=== PATIENT | male | born 1955 | race Caucasian/White ===

== ENCOUNTER 2020-09-28 13:05 | Inpatient (IN) | payer SELFPAY ==
[2020-09-28] VITALS (24 sets, daily range): BP systolic 112–177; BP diastolic 77–105; PULSE 80–118; RESP 18–27; TEMP 36.8–37.2; O2SAT 89–97; BMI 24.6
--- NOTE | ~2020-09-28 | XR_ITS ---
EXAMINATION: XR barium swallow modified EXAM DATE: 09/30/2020 08:57 INDICATION: Stroke, tongue deviation. Dysphagia. TECHNIQUE: Modified barium esophagram was performed by myself to administered fluoroscopy, in conjun ction with speech pathologist who administered barium in varying consistencies as per speech patholog ist documentation. This was recorded on tape. The DAP for this procedure was 0.66 Gycm2. FINDINGS: Oral stage: Reduced labial seal. Pharyngeal phase: Reduced laryngeal elevation. Laryngeal penetration: Demonstrated, thin liquids. Aspiration: Demonstrated, thin liquids. Laryngeal sensitivity: Inconsistent. IMPRESSION: Aspiration with thin liquids. Please refer to speech pathologist findings and specific f eeding recommendations. Reviewed, dictated and finalized at location B. APIST SPEECH IMPRESSION: Aspiration with thin liquids. Please refer to speech pathologist f indings and specific feeding recommendations.
--- NOTE | ~2020-09-28 | XR_ITS ---
XR chest 2V DATE: 09/28/2020 14:26 INDICATION: Shortness of breath TECHNIQUE: PA and lateral views COMPARISON: None FINDINGS: There is a right-sided aortic arch. Normal heart size. No hilar or mediastinal enlargement. No pulmonary infiltrate or consolidation, pleural effusion or pulmonary vascular congestion or pneumo thorax. Diffuse osteopenia. IMPRESSION: Right-sided aortic arch No active cardiopulmonary disease Reviewed, dictated and finalized at location A. INCLUSION TEACHER
--- NOTE | ~2020-09-28 | CT_ITS ---
EXAMINATION: CT brain wo con DATE: 09/28/2020 15:46 INDICATION: Right arm paresis. For 2 days TECHNIQUE: Computed tomography (CT) of the head was performed without intravenous contrast. The mA wa s adjusted according to patient size. Iterative reconstruction technique was employed. Exam dose: 60 5.33 mGy-cm total exam DLP. COMPARISON: None FINDINGS: Bilateral carotid siphon internal carotid artery calcifications. There is nonspecific diminished attenuation of the cerebral white matter, likely due to chronic small vessel ischemic changes. No intracranial mass lesion or hemorrhage. No midline shift or mass effect. Normal ventricular size. No subdural or epidural hematoma. No fracture or bone destruction of the cranial vault. Mild focal soft tissue thickening of the anteromedial wall of left maxillary sinus. The paranasal si nuses and mastoid air cells are otherwise unremarkable. IMPRESSION: Cerebral atherosclerosis and chronic small vessel ischemic changes of the cerebral white matter Reviewed, dictated and finalized at Location A. Reviewed, dictated and finalized at location A. E WOUND
--- NOTE | ~2020-09-28 | US_ITS ---
EXAMINATION: US carotid duplex BI EXAM DATE: 09/29/2020 08:47 INDICATION: Stroke. TECHNIQUE: Grayscale, color and pulsed Doppler images of the cervical carotid arteries were obtained . The degree of vessel stenosis is placed in one of the following categories: normal, <50% stenosis, 50-69% stenosis, >=70% stenosis but less than near-occlusion, near-occlusion, or occlusion. Note that percent stenosis relative to normal distal artery lumen diameter is indirectly measured from velocit y measurements as described by Fady, et al. Radiology 2003; 229:340-346. There is no prior study fo r comparison. FINDINGS: RIGHT SIDE: Right common carotid artery peak systolic velocity (PSV in cm/s): 106 Right bulb/internal carotid artery peak systolic velocity (PSV in cm/s): 116 Right internal carotid artery end diastolic velocity (EDV in cm/s): 8 Right ICA/CCA peak systolic ratio: 1.1 Right external carotid artery peak systolic velocity (PSV in cm/s): 173 Right vertebral artery antegrade flow: yes There is minimal carotid bulb plaque. Velocity and Doppler waveforms in the common and internal carotid arteries is normal. LEFT SIDE: Left common carotid artery peak systolic velocity (PSV in cm/s): 128 Left bulb/internal carotid artery peak systolic velocity (PSV in cm/s): 88 Left internal carotid artery end diastolic velocity (EDV in cm/s): 17 Left ICA/CCA peak systolic ratio: 0.7 Left external carotid artery peak systolic velocity (PSV in cm/s): 167 Left vertebral artery antegrade flow: yes There is minimal carotid bulb plaque. Velocity and Doppler waveforms in the common and internal carotid arteries is normal. IMPRESSION: 1. Less than 50 percent stenosis in the right internal carotid artery. 2. Less than 50 percent stenosis in the left internal carotid artery. Reviewed, dictated and finalized at location B. RAL FARMWORKER
--- NOTE | 2020-09-28 13:23 | ECG_ITS ---
Measurements Intervals [place] Rate: 103 P: 82 [place]: 141 QRS: -34 QRSD: 75 T: 63 QT: 316 QTc: 415 Interpretive Statements SINUS TACHYCARDIA BASELINE ARTIFACT- I, II, III, AVR, AVL, AVF BORDERLINE ECG Electronically Signed On 09-28-2020 17:14:13 ORTHOPEDIC BRACE MAKER by Valentin Petit D.O.
--- NOTE | 2020-09-28 13:30 | PC.NURSE ---
Upon assessment of pt, pt reports to have some right arm weakness. strength in arms and legs assessed, right upper extremity slightly weaker. Family reports to edp that this is not new.
[2020-09-28] MEDS: IPRATROPIUM 0.5 MG/ALBUTEROL SULFATE 2.5 MG AMPUL.NEB 3 ML INHALATION (13:40)
[2020-09-28] MEDS: methylPREDNISolone SOD SUCC 125 MG VIAL IV PUSH (13:40)
[2020-09-28 14:07] LABS: Base Excess ABG -1.4 mmol/L (0-2); HCO3 ABG 21.7 mmol/L (23-29); Oxygen Content ABG 23.9 %vol (16.0-22.0); Oxygen Saturation ABG 95.2 % (95-97); PCO2 ABG 33.2 mmHg (35-45); Total Hemoglobin 18.1 g/dL; pH ABG 7.43 (7.35-7.45)
[2020-09-28 14:13] LABS: Modified Allen's Test Pass; Site Drawn RIGHT BRACHIAL
[2020-09-28 14:14] LABS: Device ROOM AIR
[2020-09-28 14:15] LABS: Basophils Absolute Auto 0.06 K/mm3 (0.00-0.10); Basophils Percent Auto 0.4 % (0.0-1.0); Eosinophils Absolute Auto 0.03 K/mm3 (0.02-0.50); Eosinophils Percent Auto 0.2 % (1.0-6.0); Hematocrit 50.8 % (40.0-54.0); Hemoglobin 16.8 g/dL (14.0-18.0); Immature Granulocyte Absolute 0.06 K/mm3 (0.00-0.00); Immature Granulocyte Percent A 0.4 % (0.0-0.0); Lymphocytes Absolute Auto 1.47 K/mm3 (1.10-4.50); Lymphocytes Percent Auto 9.9 % (18.0-42.0); Mean Corpuscular HGB Conc 33.1 g/dL (32.0-36.0); Mean Corpuscular Hemoglobin 29.4 pg (27.0-31.0); Mean Platelet Volume 11.3 fl (8.7-11.0); Monocytes Absolute Auto 0.85 K/mm3 (0.10-0.90); Monocytes Percent Auto 5.7 % (2.0-11.0); Neutrophils Absolute Auto 12.3 K/mm3 (1.7-7.2); Neutrophils Percent Auto 83.4 % (50.0-70.0); Platelet Count Result 223 K/mm3 (150-420); Red Blood Count 5.71 M/mm3 (4.70-6.10); Red Cell Distribution Width 13.1 % (11.6-14.4); White Blood Count 14.8 K/mm3 (4.8-10.8)
[2020-09-28 14:17] LABS: D Dimer 0.39 mg/L (0.19-0.50); Influenza Control Valid (Valid); SARS-CoV-2 Ag Negative (Negative)
[2020-09-28 14:25] LABS: Alanine Aminotransferase 21 U/L (16-63); Albumin Level 3.9 g/dL (3.4-5.0); Alkaline Phosphatase 104 U/L (46-116); Anion Gap 11 mmol/L (8-16); Aspartate Amino Transferase 15 U/L (15-37); Bilirubin,Total 0.6 mg/dL (0.00-1.00); Calcium 9.4 mg/dL (8.5-10.1); Carbon Dioxide 28 mmol/L (21-32); Chloride 101 mmol/L (98-108); Estimated CRCL calculation 62 ml/min; Estimated Glomerular Filt Rate > 60; Glucose 82 mg/dL (70-99); Lactic Acid Reflex 1.7 mmol/L (0.4-2.0); Osmolality Calculated 292 mOsm/kg (285-295); Sodium 140 mmol/L (136-145); Total Protein 7.5 g/dL (6.4-8.2); Troponin I 11.1 ng/L (0.00-60.4)
[2020-09-28 14:26] LABS: BNP 7.6 pg/mL (0-100)
[2020-09-28 14:45] LABS: Blood Urea Nitrogen 23 mg/dL (7-18)
--- NOTE | 2020-09-28 15:00 | PC.NURSE ---
In to speak with pt about plan of care. pt states he is concerned about the weakness in his right arm, pt re-assessed. Pt asked again what day the weakness began, pt states that the weakness began on tuesday and that he is having trouble with his speech. pt re-assessed and discussed with edp, pt has right sided facial droop. pt alert and oriented x 3. edp discussed with pt and family to keep pt overnight in the hospital. Pt respiratory state much improved and resting comfortably on stretcher.
--- NOTE | 2020-09-28 15:17 | ED.SOB ---
HPI - SOB/Dyspnea General Chief Complaint: Shortness of Breath/Dyspnea Stated Complaint: Sob Source: patient Mode of arrival: ambulatory Limitations: no limitations History of Present Illness HPI Narrative: this is a 65-year-old gentleman with a no prior history except that of smoking history presents today with some shortness of breath with a persistent nonproductive cough with audible wheezing that started a couple of days ago and has intensified over the last 24 hours with no fever chills no nausea vomiting no chest pain. The patient also states that he has been having some weakness in his right arm for the last 3 days currently weakness has some. Right arm weakness There is no headache no blurry vision no nausea vomiting. does have a right-sided facial droop that started around evening after he went to bed and woke up Tuesday morning with some right arm and facial weakness. MD elicited complaint: shortness of breath Onset (ago): day(s) Timing: intermittent Severity: moderate Exacerbating factors: nothing Related Data Home Medications Medication Instructions Recorded Confirmed No Home Medications 09/28/20 09/28/20 Allergies Allergy/AdvReac Type Severity Reaction Status Date / Time No Known Allergies Allergy Verified 09/28/20 13:18 Review of Systems Review of Systems: All systems reviewed & are unremarkable except as noted in HPI and below PMFSH Past Medical History Medical History Tobacco abuse Exam Const: General: no acute distress Orientation/consciousness: patient oriented x3 HENMT: Head: normal to inspection Eyes: Conjunctivae: conjunctivae normal Pupils: Equal, round and reactive pupils present EOM: EOMs intact bilaterally Neck: Neck: normal visual inspection, no lymphadenopathy and no meningeal signs Chest: Chest palpation & inspection: normal inspection of the chest Resp: Effort & Inspection: normal respiratory effort Auscultation: wheezes and diminished lung sounds GI: GI Palp: Yes Soft to palpation Percussion: Yes normal to percussion Back/Spine/Pelvis: Back: no CVA tenderness Skin: General skin exam: normal color Rashes: no rashes Neuro: General: patient oriented x3, moves all extremities, no meningeal signs, no focal motor deficits and CN's II-XI intact bilaterally Cranial nerves: Yes Nystagmus not present Speech: normal speech Comatose Patient: other ( right arm weakness) Extrem: General: normal to inspection and no pedal edema Psych: Mental Status: mental status grossly normal Affect: normal affect Course Course Emergency Course: reassessment of patient currently wheezing has improved and is did shortness of breath, patient with some right arm weakness has also improved and will give him a dose of ceftriaxone IV, With a facial weakness in right arm weakness well give a full dose aspirin and admit to the floor discussed the findings in the situation with his brother and with the patient, and CT scan showed no acute intracranial process of did show some chronic small-vessel disease. Vital Signs Vital signs: Vital Signs Temperature 36.9 C 09/28/20 13:19 Pulse Rate 107 H 09/28/20 13:19 Respiratory Rate 22 H 09/28/20 13:19 Blood Pressure 177/105 H 09/28/20 13:19 Pulse Oximetry 92 09/28/20 13:19 Temperature 36.9 C 09/28/20 13:19 Pulse Rate 94 09/28/20 14:46 Respiratory Rate 21 H 09/28/20 14:46 Blood Pressure 165/85 H 09/28/20 14:46 Pulse Oximetry 96 09/28/20 14:46 MDM - SOB/Dyspnea Lab Data Result diagrams: 09/28/20 13:59 09/28/20 13:59 Labs: Lab Results 09/28/20 09/28/20 09/28/20 Range/Units 13:59 13:59 13:59 WBC 14.8 H (4.8-10.8) K/mm3 RBC 5.71 (4.70-6.10) M/mm3 Hgb 16.8 (14.0-18.0) g/dL Hct 50.8 (40.0-54.0) % MCV 89.0 (78.0-102.0) fL MCH 29.4 (27.0-31.0) pg MCHC 33.1 (32.0-36.0) g/dL RDW 13
[2020-09-28] MEDS: ASPIRIN 81 MG CHEWABLE TABLET 324 MG PO (16:01)
--- NOTE | 2020-09-28 16:45 | ADMGEN ---
This patient, Walt Hightower, was admitted to 2nd Floor Room 204-1. Patient/family oriented to hospital policies and general routines including ID bracelet, bed and alarms, visiting hours, pain management, procedures, bathroom and other care routines, personal items, smoking policy, room service/diet, and visiting hours. Information on how to activate the Rapid Response Team has been discussed. Patient/Family are encouraged to report perceived risks to care and to ask questions if they do not understand what they are told or what they should do.
[2020-09-28] MEDS: SODIUM CHLORIDE 0.9% IV 1,000 ML 150 ML IV CONT (17:29)
[2020-09-28] MEDS: levETIRAcetam 500 MG TABLET PO (21:08)
[2020-09-29] VITALS (8 sets, daily range): BP systolic 123–146; BP diastolic 72–86; PULSE 64–95; RESP 18–20; TEMP 36.4–37.4; O2SAT 90–98
--- NOTE | 2020-09-29 00:10 | PC.NURSE ---
Called Dr. Morales to clarify IV fluid orders; Orders clarified.
[2020-09-29 05:44] LABS: Basophils Absolute Auto 0.01 K/mm3 (0.00-0.10); Basophils Percent Auto 0.1 % (0.0-1.0); Eosinophils Absolute Auto 0.01 K/mm3 (0.02-0.50); Eosinophils Percent Auto 0.1 % (1.0-6.0); Hematocrit 45.2 % (40.0-54.0); Hemoglobin 14.9 g/dL (14.0-18.0); Immature Granulocyte Absolute 0.11 K/mm3 (0.00-0.00); Immature Granulocyte Percent A 0.7 % (0.0-0.0); Lymphocytes Absolute Auto 0.78 K/mm3 (1.10-4.50); Lymphocytes Percent Auto 5.1 % (18.0-42.0); Mean Corpuscular Hemoglobin 29.4 pg (27.0-31.0); Mean Corpuscular Volume 89.3 fL (78.0-102.0); Mean Platelet Volume 11.2 fl (8.7-11.0); Monocytes Absolute Auto 0.73 K/mm3 (0.10-0.90); Monocytes Percent Auto 4.7 % (2.0-11.0); Neutrophils Absolute Auto 13.8 K/mm3 (1.7-7.2); Neutrophils Percent Auto 89.3 % (50.0-70.0); Platelet Count Result 201 K/mm3 (150-420); Red Blood Count 5.06 M/mm3 (4.70-6.10); White Blood Count 15.4 K/mm3 (4.8-10.8)
[2020-09-29 05:56] LABS: Alanine Aminotransferase 20 U/L (16-63); Albumin Level 3.3 g/dL (3.4-5.0); Alkaline Phosphatase 84 U/L (46-116); Anion Gap 10 mmol/L (8-16); Aspartate Amino Transferase 13 U/L (15-37); Bilirubin,Total 0.4 mg/dL (0.00-1.00); Blood Urea Nitrogen 23 mg/dL (7-18); Calcium 8.7 mg/dL (8.5-10.1); Carbon Dioxide 28 mmol/L (21-32); Chloride 103 mmol/L (98-108); Estimated CRCL calculation 73 ml/min; Estimated Glomerular Filt Rate > 60; Glucose 113 mg/dL (70-99); Osmolality Calculated 296 mOsm/kg (285-295); Potassium 4.4 mmol/L (3.5-5.1); Sodium 141 mmol/L (136-145); Total Protein 6.1 g/dL (6.4-8.2)
[2020-09-29] MEDS: NICOTINE (*PBKC) 21 MG PATCH 1 PATCH TRANSDERM (09:49)
[2020-09-29] MEDS: CLOPIDOGREL BISULFATE 75 MG TABLET PO (09:50)
[2020-09-29] MEDS: guaiFENesin 12 HR 600 MG TABCR PO ×2 (09:50→20:35)
[2020-09-29] MEDS: ACETAMINOPHEN 325 MG TABLET 650 MG PO (09:50)
[2020-09-29] MEDS: SIMVASTATIN 10 MG TABLET 20 MG PO (09:50)
[2020-09-29] MEDS: BENZONATATE 100 MG CAPSULE 200 MG PO ×3 (09:50→16:17)
[2020-09-29] MEDS: predniSONE 20 MG TABLET 40 MG PO (09:51)
[2020-09-29] MEDS: levETIRAcetam 500 MG TABLET 250 MG PO ×2 (10:01→20:35)
--- NOTE | 2020-09-29 11:14 | PM.IMHP ---
H&P: HPI History of Present Illness Date/Time: 09/29/20 11:14 Chief Complaint: sob Narrative: aWlt Hightower is a 65 year old male that presented to our ED today with complaints of shortness of breath and nonproductive cough with wheezing that started a couple of days ago and worsened. Patient has a past medical history of tobacco dependency in COPD. During his visit it was also noticed that he had right-sided facial drooping and right arm weakness according to patient he developed the symptoms on Tuesday. Patient is being ruled out for CVA. Today he continues to have left side facial drooping, handgrip equal bilateral lower extremity strength equal bilateral. Patient does have a little speech deficiency. His carotid Doppler indicates less than 50% stenosis bilateral. Chest x-ray indicates right side aortic arch which patient is not aware of otherwise unremarkable. CT of the head indicates Cerebral atherosclerosis and chronic small vessel ischemic changes of the cerebral white matter. Patient WBC slightly elevated at 15.4 blood gas CO2 33.2 PO2 71 bicarb 21.7. No other significant lab noted. Patient continues to complain of wheeziness this assessment, uncontrolled unproductive cough, his shortness of breath has improved. The patient denies CP, palpitation, extremity numbness, lightheadedness, dizziness, constipation, diarrhea, chills, or fever. Spoke to patient's primary care physician Dr. Amador, updated him on patient's situation. He has agreed to order an MRI for the patient as outpatient and follow-up. We will monitor the patient from 48 hours and possible discharge tomorrow with PT OT and speech therapy as outpatient. This document was completed by using [employer] Fluency Direct speech recognition software, therefore banquet waiter/waitress variances may occur. Despite proofreading, typographical errors may also occur. Review of Systems Review of Systems: All systems reviewed & are unremarkable except as noted in HPI and below (10 point system reviewed) [facility] Past Medical History Medical History Tobacco abuse Social History Social History Smoking packs per day: 1 Smoking cigarettes per day: 20.0 Years smoked: 45 Smoking pack-years: 45.00 Smoking status: Current every day smoker Tobacco type: cigarettes Alcohol intake: never Substance use: never Gender identity (if verbalized by the patient): Male Sexual Orientation (if Verbalized by the Patient): Straight or Heterosexual Spiritual care concerns: No Meds Home Medications and Allergies Home Medications Medication Instructions Recorded Confirmed Type No Home Medications 09/28/20 09/28/20 History Allergies Allergy/AdvReac Type Severity Reaction Status Date / Time No Known Allergies Allergy Verified 09/28/20 13:18 Vital Signs Vital Signs - 24 hr 09/28/20 13:19 09/28/20 13:22 09/28/20 13:30 Temperature 98.4 F Pulse Rate 107 H 109 H 104 H Respiratory Rate 22 H 25 H 22 H Blood Pressure 177/105 H Pulse Oximetry 92 93 09/28/20 13:31 09/28/20 13:45 09/28/20 13:48 Temperature Pulse Rate 109 H 81 97 Respiratory Rate 22 H 23 H 18 Blood Pressure 176/95 H 165/93 H Pulse Oximetry 93 97 93 09/28/20 14:00 09/28/20 14:01 09/28/20 14:15 Temperature Pulse Rate 104 H 107 H 98 Respiratory Rate 24 H 22 H 23 H Blood Pressure 148/102 H Pulse Oximetry 90 91 89 L 09/28/20 14:16 09/28/20 14:30 09/28/20 14:31 Temperature Pulse Rate 118 H 96 95 Respiratory Rate 27 H 22 H 21 H Blood Pressure 132/90 166/93 H Pulse Oximetry 91 92 95 09/28/20 14:45 09/28/20 14:46 09/28/20 14:47 Temperature Pulse Rate 90 94 87 Respiratory Rate 22 H 21 H 21 H Blood Pressure 165/85 H Pulse Oximetry 95 96 97 09/28/20 15:01 09/28/20 15:15 09/28/20 15:16 Temperature Pulse Rate 94 105 H 98 Respiratory Rate 20 22 H
[2020-09-29] MEDS: ASPIRIN 81 MG CHEWABLE TABLET 324 MG PO (16:17)
[2020-09-30] VITALS: BP 131/74; PULSE 68; RESP 16; TEMP 36.8; O2SAT 93
[2020-09-30 03:40] VITALS: BP 138/84; PULSE 58; RESP 18; TEMP 36.6; O2SAT 93
[2020-09-30 05:53] LABS: Hematocrit 44.4 % (40.0-54.0); Hemoglobin 14.8 g/dL (14.0-18.0); Mean Corpuscular HGB Conc 33.3 g/dL (32.0-36.0); Mean Corpuscular Hemoglobin 29.8 pg (27.0-31.0); Mean Corpuscular Volume 89.3 fL (78.0-102.0); Mean Platelet Volume 11.3 fl (8.7-11.0); Platelet Count Result 202 K/mm3 (150-420); Red Blood Count 4.97 M/mm3 (4.70-6.10); Red Cell Distribution Width 13.3 % (11.6-14.4); White Blood Count 16.9 K/mm3 (4.8-10.8)
[2020-09-30 06:09] LABS: Anion Gap 7 mmol/L (8-16); Blood Urea Nitrogen 21 mg/dL (7-18); Calcium 8.8 mg/dL (8.5-10.1); Carbon Dioxide 30 mmol/L (21-32); Chloride 104 mmol/L (98-108); Estimated CRCL calculation 75 ml/min; Estimated Glomerular Filt Rate > 60; Glucose 80 mg/dL (70-99); Osmolality Calculated 294 mOsm/kg (285-295); Potassium 3.7 mmol/L (3.5-5.1); Sodium 141 mmol/L (136-145)
--- NOTE | 2020-09-30 07:38 | ECHO_ITS ---
Patient Info Name: Walt Hightower Age: 65 years : 1955 Gender: Male Ht: 68 in Wt: 162 lbs BSA: 1.89 m2 HR: 58 bpm BP: 138 / 84 mmHg Technical Quality: Fair Exam Date: 09/30/2020 8:47 AM Exam Location: [facility] Patient Status: Inpatient Admit Date: 09/28/2020 Staff Ordering Physician: Joe Field Cultured Marble Products Maker: Kimmy Almanza RDCS Attending Provider: Abhinav Morales MD Exam Type: CA echo doppler color flow Study Info Indications R00.2 - Palpitations R06.00 - Dyspnea, unspecified Complete two-dimentional, color flow and Doppler transthoracic echocardiogram is performed with agitated saline and with contrast to opacify the left ventricle and to improve the delineation of the left ventricle endocardial borders. History/Risk Factors Obesity: No Tobacco Use: Current - Every Day If Any Current, Tobacco Type: Cigarettes If Current - Every Day \T\ Cigarettes, Amount: Heavy Tobacco Use (>=10/day) Dialysis: Current Summary 1. Left ventricular chamber dimension is normal. 2. Left ventricular systolic function is normal, estimated at 60-65%. 3. There is mildly increased left ventricular wall thickness. 4. The left ventricular diastolic function is grade II diastolic dysfunction. Recommendations * Smoking cessation counseling is recommended for this patient. Left Ventricle Tissue doppler E/e' is not performed. Left ventricular chamber dimension is normal. Left ventricular systolic function is normal, estimated at 60-65%. There is mildly increased left ventricular wall thickness. The left ventricular diastolic function is grade II diastolic dysfunction. Right Ventricle Right ventricular chamber dimension is normal. Right ventricular systolic function is normal. Left Atria Left atrial chamber dimension is normal. Right Atria Right atrial chamber dimension is normal. Aortic Valve The aortic valve is trileaflet. There is no aortic valve stenosis. There is no aortic valve regurgitation. Pulmonic Valve There is no pulmonic regurgitation. Mitral Valve There is no mitral valve stenosis. There is no mitral valve regurgitation. Tricuspid Valve There is no tricuspid valve regurgitation. Pericardium/Pleural There is no pericardial effusion. Inferior Vena Cava Normal inferior vena cava with >50% collapse upon inspiration consistent with normal right atrial pressure, 5 mmHg. Aorta The aortic root size at the sinus of Valsalva is normal. Left Ventricular Outflow Tract Name Value Normal LVOT 2D LVOT Diameter 1.9 cm LVOT Doppler LVOT Peak Velocity 84 cm/s LVOT Peak Gradient 3 mmHg LVOT Mean Gradient 1 mmHg LVOT VTI 15 cm LVOT VTI/AV VTI Ratio 0.7 LVOT Stroke Volume 42 ml Mitral Valve Name Value Normal
[2020-09-30 08:00] VITALS: BP 130/80; PULSE 70; PULSE 76; RESP 20; TEMP 37.3; O2SAT 94
--- NOTE | 2020-09-30 08:52 | PC.NURSE ---
npo this am and down and back from xray for barium swallow. refuses breakfast. now echo. r client development manager weaker than l.
[2020-09-30] MEDS: BENZONATATE 100 MG CAPSULE 200 MG PO (09:29)
[2020-09-30] MEDS: predniSONE 20 MG TABLET 40 MG PO (09:29)
[2020-09-30] MEDS: SIMVASTATIN 10 MG TABLET 20 MG PO (09:29)
[2020-09-30] MEDS: guaiFENesin 12 HR 600 MG TABCR PO (09:29)
[2020-09-30] MEDS: NICOTINE (*PBKC) 21 MG PATCH 1 PATCH TRANSDERM (09:30)
[2020-09-30] MEDS: CLOPIDOGREL BISULFATE 75 MG TABLET PO (09:30)
[2020-09-30 12:00] VITALS: BP 136/75; PULSE 70; PULSE 74; RESP 18; TEMP 36.6; O2SAT 94
--- NOTE | 2020-09-30 12:10 | PM.DS ---
DS: Admitting Diagnosis Admitting Diagnosis Admitting Diagnosis: exacerbation COPD CVA DS: Discharge Diagnosis Discharge Diagnosis (1) Acute exacerbation of chronic obstructive airways disease: Code(s): J44.1 - Chronic obstructive pulmonary disease with (acute) exacerbation Status: Acute Assessment and Plan: 09/30/2020 patient was started on Rocephin prednisone breathing treatments oxygen as needed and a note that patient will need to be discharged with albuterol and Symbicort, patient states his breathing is improving today (2) Stroke: Qualifiers: CVA mechanism: unspecified Qualified Code(s): I63.9 - Cerebral infarction, unspecified Code(s): I63.9 - Cerebral infarction, unspecified Status: Acute Assessment and Plan: 09/30/[address] head: CT -Cerebral atherosclerosis and chronic small vessel ischemic changes of the cerebral white matter, patient has follow-up with primary care provider and have MRI scheduled through PCP patient is to continue his beta-mekhi aspirin and Plavix, swallow study was done and patient is to have mechanical soft with nectar thick fluids, my understanding is patient does not have insurance and after talking with case management home health will not picker feeder the patient without insurance (3) Bronchitis: Code(s): J40 - Bronchitis, not specified as acute or chronic Status: Acute Assessment and Plan: 09/30/2020 as noted under acute exacerbation of COPD (4) Tobacco abuse: Code(s): Z72.0 - Tobacco use Status: Acute Assessment and Plan: Provided nicotine patch Patient educated on smoking cessation DS: Summary Hospital Course Hospital Course: patient states that his symptoms from possible stroke have improved only has right arm numbness a little states his breathing is improved today he is able to walk to and from the bathroom without becoming short of breath Time Spent with Patient Time attestation: Total time spent providing and/or coordinating discharge services: < 30 minutes Exam Const: General: cooperative, comfortable, no acute distress, alert, awake and Physically active Nutritional Appearance: average body habitus Resp: Effort & Inspection: normal respiratory effort Auscultation: wheezes expiratory wheezes and inspiratory wheezes Cardio: Rate: regular rate Heart sounds: S1 normal heart sound present and S2 normal heart sound present GI: GI Palp: Yes Soft to palpation and No Tenderness to palpation present (GI) Auscultation: normal bowel sounds Neuro: General: oriented to person, oriented to place and oriented to time Cranial nerves: Yes Normal facial strength present and Yes facial symmetry (right-sided facial droop) Cognition (Neuro): normal cognition Speech: Abnormal speech present slurred Sensory Exam: other (slight numbness to the right arm normal sensation in the legs) Extrem: General: no pedal edema DS: Data Data Completed and Pending Labs on day of discharge: Labs from last 24 hours 09/30/20 09/30/20 05:14 05:14 WBC 16.9 H RBC 4.97 Hgb 14.8 Hct 44.4 MCV 89.3 MCH 29.8 MCHC 33.3 RDW 13.3 Plt Count 202 MPV 11.3 H Sodium 141 Potassium 3.7 Chloride 104 Carbon Dioxide 30 Anion Gap 7 L BUN 21 H Creatinine 0.84 Estim Creat Clear Calc 75 Estimated GFR > 60 Glucose 80 Calculated Osmolality 294 Calcium 8.8 Discharge Plan Discharge Attending physician on discharge: Cuong Cavazos Discharging Clinician: Joe Field Anticipated Discharge Date/Time: 09/30/20 13:30 Patient Disposition: Home, Self-Care Activity: as tolerated Diet: heart healthy Discharge Instructions: follow-up with primary care provider within a week also medications will be ordered for you to picker feeder at her pharmacy Patient Instructions: Ischemic Stroke (DC), Antibiotic Form Stand Alone Forms: General Discharge Information
--- NOTE | 2020-10-03 10:05 | PC.NURSE ---
Pt states he received and understood his discharge instructions. Has no other questions or comments.
== END 2020-09-30 14:00 | disposition home or self-care (01) | DRG 140 ==
LOC: CHSED 16:04 → CHS2ND 16:21
PROVIDERS: Nurse Practitioner; Admitting Provider Emergency Medicine; Emergency Provider Emergency Medicine; PCP Family Medicine; Visit Provider Emergency Medicine
DX: J44.1 Chronic obstructive pulmonary disease with (acute) exacerbation (principal); F17.200 Nicotine dependence, unspecified, uncomplicated; Z20.822 Contact with and (suspected) exposure to COVID-19; J44.0 Chronic obstructive pulmonary disease with (acute) lower respiratory infection; J20.9 Acute bronchitis, unspecified; I63.9 Cerebral infarction, unspecified; R29.810 Facial weakness; R20.0 Anesthesia of skin; I67.2 Cerebral atherosclerosis; F17.210 Nicotine dependence, cigarettes, uncomplicated
CPT/HCPCS: 36415; 36600; 70450; 71046; 80048; 80053; 82805; 83605; 83735; 83880; 84484; 85025; 85027; 85380; 87040; 87426; 87804; 92610; 92611; 93005; 93306; 93880; 94640; 96365; 96375; 97161; 97165; 97530; 97535; 99285; A9270; C9803; J0696; J2930; J7030; J7512

== ENCOUNTER 2020-10-03 22:31 | Emergency (ER) | payer SELFPAY ==
--- NOTE | ~2020-10-03 | XR_ITS ---
EXAMINATION: XR chest 2V DATE: 10/04/2020 00:12 INDICATION: Chronic obstructive pulmonary disease. TECHNIQUE: Frontal and lateral views of the chest were obtained. COMPARISON: Chest 2 views 09/28/2020 FINDINGS: There is mild scarring at right lung apex. No pleural effusion or pneumothorax. The heart s ize is normal. 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 There is mild chronic anterior wedging of multiple vertebral bodies. There are old healed left rib fractures. IMPRESSION: 1. Mild scarring at right lung apex. Reviewed, dictated and finalized at location A. [employer]
[2020-10-03 22:35] VITALS: PULSE 66
[2020-10-03 22:42] VITALS: BP 171/88; PULSE 66; RESP 20; TEMP 36.6; O2SAT 97; O2SAT 98
--- NOTE | 2020-10-03 22:42 | ECG_ITS ---
Measurements Intervals [place] Rate: 65 P: 63 [place]: 152 QRS: 26 QRSD: 81 T: 55 QT: 398 QTc: 416 Interpretive Statements SINUS RHYTHM BASELINE ARTIFACT- I, II, III NORMAL ECG Electronically Signed On 10-04-2020 8:11:14 SAND CLEANING MACHINE OPERATOR by Valentin Petit D.O.
[2020-10-03] MEDS: ALBUTEROL SULFATE NEB 2.5 MG/3 ML INH 5 MG INHALATION (23:13)
[2020-10-03 23:15] VITALS: PULSE 63; RESP 14; O2SAT 94
--- NOTE | 2020-10-03 23:16 | ED.SOB ---
HPI - SOB/Dyspnea General Chief Complaint: Shortness of Breath/Dyspnea Stated Complaint: trouble breathing Time Seen by Provider: 10/03/20 22:55 Source: patient and family Mode of arrival: ambulatory Limitations: other (He appears to have some mild difficulty speaking clearly. ) History of Present Illness HPI Narrative: Patient states he had been doing well today, but he washed his floor with [employer] oil soap and then since 8pm tonight he has been short of breath. He states this came on relatively quickly. MD elicited complaint: shortness of breath Related Data Allergies Allergy/AdvReac Type Severity Reaction Status Date / Time No Known Allergies Allergy Verified 09/28/20 13:18 Review of Systems Constitutional: Constitutional: Reports no additional constitutional complaints Eyes: Eyes: Reports no additional eye complaints ENT: Reports system reviewed and no additional complaints, except as documented Cardiovascular: Cardiovascular: Reports no additional cardiovascular complaints Respiratory: Respiratory: Reports no additional respiratory complaints Gastrointestinal: Gastrointestinal: Reports no additional gastrointestinal complaints Genitourinary: Genitourinary: Reports no additional male genitourinary complaints Musculoskeletal: Musculoskeletal: Reports no additional musculoskeletal complaints Integumentary/Breasts: Skin/Breast: Reports system reviewed and no additional complaints, except as docu Neurologic: Reports system reviewed and no additional complaints, except as documented Psychiatric: Psychiatric: Reports no additional psychiatric complaints Endocrine: Endocrine: Reports no additional endocrine complaints Hematologic/Lymphatic: Hematologic/Lymphatic: Reports no additional hematologic/lymphatic complaints Allergic/Immunologic: Allergic/Immunologic: Reports no additional allergic/immunologic complaints FOR[facility]LY [facility] Past Medical History Medical History Tobacco abuse Social History Social History Smoking packs per day: 1 Smoking cigarettes per day: 20.0 Years smoked: 45 Smoking pack-years: 45.00 Smoking status: Current every day smoker Tobacco type: cigarettes Alcohol intake: never Substance use: never Gender identity (if verbalized by the patient): Male Spiritual care concerns: No Exam Const: General: no acute distress Orientation/consciousness: patient oriented x3 HENMT: Head: normal to inspection Ears: external ears normal Face and sinus: normal facial exam Mouth: Yes Normal oral and palatal mucosa present and Yes moist mucous membranes Eyes: Conjunctivae: conjunctivae normal Neck: Neck: normal visual inspection and no lymphadenopathy Chest: Chest palpation & inspection: normal inspection of the chest Resp: Effort & Inspection: normal respiratory effort Auscultation: wheezes and diminished lung sounds Other: bilateral soft wheezing Cardio: Rate: regular rate Rhythm: regular rhythm GI: GI Palp: Yes Soft to palpation (nontender) Skin: General skin exam: normal color Rashes: no rashes Neuro: General: patient oriented x3, moves all extremities, no meningeal signs and no focal motor deficits Extrem: General: normal to inspection Psych: Mental Status: mental status grossly normal Course Course Emergency Course: Patient was given solumedrol 125mg and albuterol 5mg as nebulizer. After this he was feeling much better. Labs, Ekg, and chest X ray were reviewed. He was sent home with a script for albuterol nebs and dexamethasone 4mg two tablets daily for three days. I asked him to follow up with his doctor soon. Vital Signs Vital signs: Vital Signs Pulse Rate 66 10/03/20 22:35 Temperature 36.8 C 10/03/20 23:54 Pulse Rate 72 10/03/20 23:54 Respiratory Rate 18 10/03/20 23:54 Blood Pressure 107/92 H 10/03/20 23:54 Pulse Oximetry 97 02
[2020-10-03 23:20] VITALS: PULSE 70; RESP 17; O2SAT 100
[2020-10-03 23:20] LABS: Basophils Absolute Auto 0.06 K/mm3 (0.00-0.10); Basophils Percent Auto 0.7 % (0.0-1.0); Eosinophils Absolute Auto 0.15 K/mm3 (0.02-0.50); Eosinophils Percent Auto 1.8 % (1.0-6.0); Hematocrit 42.2 % (40.0-54.0); Hemoglobin 14.2 g/dL (14.0-18.0); Immature Granulocyte Absolute 0.03 K/mm3 (0.00-0.00); Immature Granulocyte Percent A 0.4 % (0.0-0.0); Lymphocytes Percent Auto 22.6 % (18.0-42.0); Mean Corpuscular HGB Conc 33.6 g/dL (32.0-36.0); Mean Corpuscular Volume 89.2 fL (78.0-102.0); Monocytes Percent Auto 8.3 % (2.0-11.0); Neutrophils Absolute Auto 5.6 K/mm3 (1.7-7.2); Neutrophils Percent Auto 66.2 % (50.0-70.0); Platelet Count Result 217 K/mm3 (150-420); Red Blood Count 4.73 M/mm3 (4.70-6.10); Red Cell Distribution Width 13.2 % (11.6-14.4); White Blood Count 8.4 K/mm3 (4.8-10.8)
[2020-10-03] MEDS: methylPREDNISolone SOD SUCC 125 MG VIAL IV PUSH (23:28)
[2020-10-03 23:33] LABS: D Dimer 0.39 mg/L (0.19-0.50)
[2020-10-03 23:37] LABS: Alanine Aminotransferase 22 U/L (16-63); Albumin Level 3.3 g/dL (3.4-5.0); Alkaline Phosphatase 69 U/L (46-116); Anion Gap 8 mmol/L (8-16); Aspartate Amino Transferase 13 U/L (15-37); Bilirubin,Total 0.5 mg/dL (0.00-1.00); Blood Urea Nitrogen 22 mg/dL (7-18); Calcium 8.6 mg/dL (8.5-10.1); Carbon Dioxide 28 mmol/L (21-32); Chloride 107 mmol/L (98-108); Estimated CRCL calculation 59 ml/min; Estimated Glomerular Filt Rate > 60; Glucose 95 mg/dL (70-99); Osmolality Calculated 299 mOsm/kg (285-295); Potassium 3.7 mmol/L (3.5-5.1); Sodium 143 mmol/L (136-145); Total Protein 6.2 g/dL (6.4-8.2)
[2020-10-03 23:38] LABS: BNP 5.8 pg/mL (0-100)
[2020-10-03 23:51] LABS: Troponin I 10.8 ng/L (0.00-60.4)
[2020-10-03 23:54] VITALS: BP 107/92; PULSE 72; RESP 18; TEMP 36.8; O2SAT 97
== END 2020-10-04 00:41 | disposition home or self-care (01) ==
PROVIDERS: Emergency Provider Emergency Medicine; PCP Family Medicine
DX: J44.1 Chronic obstructive pulmonary disease with (acute) exacerbation (principal)
CPT/HCPCS: 36415; 71046; 80053; 83880; 84484; 85025; 85380; 93005; 94640; 96374; 99283; 99284; J2930